=== PATIENT | male | born 1960 | race Caucasian/White ===

== ENCOUNTER 2017-01-11 13:24 | Inpatient (IN) | payer OTHER ==
[~2017-01-11] VITALS: Ht 170.2 cm; Wt 80.5 kg
[~2017-01-11 13:24] MED LIST: DIL100 PO; TOPAMAX50 MG; VIMPAT100 MG PO
[2017-01-11 14:49] LABS: BASOPHIL % 0.5 % (0-2); PLATELET COUNT 311 x10^3mcL (130-400); RED CELL DISTRIBUTION WIDTH 13.3 % (11.5-14.5)
[2017-01-11 15:03] LABS: CALCIUM 9.1 mg/dL (8.5-10.1); CARBON DIOXIDE 24.8 mmol/L (21-32); POTASSIUM SERUM 4.3 mmol/L (3.5-5.1)
[2017-01-11 15:07] LABS: ALBUMIN 4.3 g/dL (3.4-5.0); BILIRUBIN TOTAL 0.4 mg/dL (0.20-1.00); TOTAL PROTEIN, SERUM 7.8 g/dL (6.4-8.2)
[2017-01-11 15:19] LABS: UA SPECIFIC GRAVITY 1.025 (1.005-1.035); microscopic required? YES; urine erythrocyte NEGATIVE (NEGATIVE)
[2017-01-11 15:28] LABS: AMPHETAMINE QUAL UR NONE DETECTED (NEG <=1000)
[2017-01-11] MEDS ORDERED: LAM100 PO (17:10)
[2017-01-11] MEDS ORDERED: KLONOPIN1 MG PO (17:10)
[2017-01-11] MEDS ORDERED: TOPIRAMATE200 M2 PO (17:10)
[2017-01-11] MEDS ORDERED: ATENOLOL25 MG (17:13)
[2017-01-11] MEDS ORDERED: ASPIR 8181 MG PO (17:13)
[2017-01-11] MEDS ORDERED: NITROGLYCERIN0.4 MG SL (17:13)
[2017-01-11 17:43] LABS: CHOLESTEROL/HDL RATIO 5.4; MAGNESIUM 2.3 mg/dL (1.8-2.4)
[2017-01-11 17:52] LABS: FREE T4 0.88 ng/dL (0.76-1.46); FREE THYROXINE INDEX 2.7 ug/dL (1.4-4.5); T4(THYROXINE) 8.3 ug/dL (4.7-13.3)
[2017-01-11 17:53] LABS: T3 TOTAL 1.19 ng/mL
[2017-01-11 18:03] VITALS: BP 111/67
[2017-01-11 22:14] VITALS: BP 112/70
[2017-01-12 06:26] VITALS: BP 129/69
[2017-01-12 09:19] LABS: BASOPHIL % 0.5 % (0-2); PLATELET COUNT 330 x10^3mcL (130-400); RED CELL DISTRIBUTION WIDTH 13.4 % (11.5-14.5)
[2017-01-12 09:42] LABS: CALCIUM 8.7 mg/dL (8.5-10.1); CARBON DIOXIDE 23.8 mmol/L (21-32); CREATININE SERUM 1.4 mg/dL (0.7-1.3); POTASSIUM SERUM 4.2 mmol/L (3.5-5.1)
[2017-01-12 10:11] VITALS: BP 129/72
[2017-01-12 14:21] VITALS: BP 108/64
[2017-01-12 18:06] VITALS: BP 103/63
[2017-01-12 21:36] VITALS: BP 132/62
[2017-01-13 05:38] VITALS: BP 122/71
[2017-01-13 06:20] LABS: BASOPHIL % 0.4 % (0-2); PLATELET COUNT 293 x10^3mcL (130-400); RED CELL DISTRIBUTION WIDTH 13.1 % (11.5-14.5)
[2017-01-13 06:32] LABS: CALCIUM 8.5 mg/dL (8.5-10.1); CARBON DIOXIDE 24.2 mmol/L (21-32); CREATININE SERUM 1.5 mg/dL (0.7-1.3); PHOSPHOROUS 3.2 mg/dL (2.5-4.9); POTASSIUM SERUM 4.4 mmol/L (3.5-5.1)
[2017-01-13 09:00] VITALS: BP 98/62
[2017-01-13 13:50] VITALS: BP 133/74
[2017-01-13 16:43] VITALS: BP 133/74
== END 2017-01-13 18:28 | disposition home or self-care (01) | DRG 203 ==
LOC: ED 13:24 → DU 17:03
PROVIDERS: Emergency Medicine; Family Medicine; ADMIT Family Medicine
DX: M94.0 Chondrocostal junction syndrome [Tietze] (principal); N18.4 Chronic kidney disease, stage 4 (severe); I12.9 Hypertensive chronic kidney disease with stage 1 through stage 4 chronic kidney disease, or unspecified chronic kidney disease; E78.00 Pure hypercholesterolemia, unspecified; G40.909 Epilepsy, unspecified, not intractable, without status epilepticus; G47.33 Obstructive sleep apnea (adult) (pediatric); M17.11 Unilateral primary osteoarthritis, right knee; Z87.891 Personal history of nicotine dependence
CPT/HCPCS: 80307; 83880; 84439; J2270; J7030; Q0092

== ENCOUNTER 2017-01-19 16:25 | Emergency (ER) | payer OTHER ==
[~2017-01-19] VITALS: Ht 170.2 cm; Wt 82.1 kg
[~2017-01-19 16:25] MED LIST changes: +ASPIR 8181 MG PO; +ATENOLOL25 MG; +KLONOPIN1 MG PO; +LAM100 PO; +NITROGLYCERIN0.4 MG SL; +TOPIRAMATE200 M2 PO
[2017-01-19 20:38] VITALS: BP 133/84
== END 2017-01-19 20:38 | disposition home or self-care (01) ==
LOC: ED 16:25
DX: M25.561 Pain in right knee (principal); M19.90 Unspecified osteoarthritis, unspecified site; I10 Essential (primary) hypertension; Z79.899 Other long term (current) drug therapy
CPT/HCPCS: Q0092

== ENCOUNTER 2017-04-27 09:41 | Emergency (ER) | payer OTHER ==
[2017-04-27 11:11] VITALS: BP 149/79
== END 2017-04-27 11:17 | disposition home or self-care (01) ==
LOC: ED 09:41
DX: M19.011 Primary osteoarthritis, right shoulder (principal); I10 Essential (primary) hypertension; G47.30 Sleep apnea, unspecified; J45.909 Unspecified asthma, uncomplicated; Z98.890 Other specified postprocedural states

== ENCOUNTER 2017-12-05 12:32 | Emergency (ER) | payer OTHER ==
[~2017-12-05] VITALS: Ht 170.2 cm; Wt 83.0 kg
[2017-12-05 12:35] VITALS: Ht 170.2 cm; Wt 83.0 kg
[2017-12-05 14:27] LABS: CALCIUM 8.8 mg/dL (8.5-10.1); CARBON DIOXIDE 22.3 mmol/L (21-32); CHLORIDE SERUM 108 mmol/L (98-107); CREATININE SERUM 1.2 mg/dL (0.7-1.3); GFR1 > 60 mL/min; GLUCOSE SERUM 93 mg/dL (74-106); POTASSIUM SERUM 3.6 mmol/L (3.5-5.1); SODIUM SERUM 140 mmol/L (136-145)
[2017-12-05 14:28] LABS: BASOPHIL % 0.4 % (0-2); PLATELET COUNT 330 x10^3mcL (130-400); RED CELL DISTRIBUTION WIDTH 14.3 % (11.5-14.5)
[2017-12-05 14:32] LABS: ALBUMIN 4.4 g/dL (3.4-5.0); ALKALINE PHOSPHATASE 120 U/L (46-116); ALT/SGPT 36 U/L (16-63); AST/SGOT 20 U/L (15-37); BILIRUBIN TOTAL 0.2 mg/dL (0.20-1.00)
[2017-12-05 15:02] VITALS: BP 141/91
== END 2017-12-05 15:02 | disposition home or self-care (01) ==
LOC: ED 12:32
PROVIDERS: Emergency Medicine
DX: R07.89 Other chest pain (principal); J45.909 Unspecified asthma, uncomplicated; I10 Essential (primary) hypertension; M19.90 Unspecified osteoarthritis, unspecified site
CPT/HCPCS: 36415; 83880; J1885; Q0092

== ENCOUNTER 2018-04-11 18:09 | Inpatient (IN) | payer OTHER ==
[~2018-04-11] VITALS: Ht 167.6 cm; Wt 82.0 kg
[2018-04-11 18:13] VITALS: Ht 167.6 cm; Wt 82.0 kg
[2018-04-11 18:47] LABS: BASOPHIL % 0.5 % (0-2); PLATELET COUNT 298 x10^3mcL (130-400); RED CELL DISTRIBUTION WIDTH 13.3 % (11.5-14.5)
[2018-04-11 19:05] LABS: CALCIUM 9.2 mg/dL (8.5-10.1); CARBON DIOXIDE 22.4 mmol/L (21-32); CHLORIDE SERUM 105 mmol/L (98-107); CREATININE SERUM 1.2 mg/dL (0.7-1.3); GFR1 > 60 mL/min; GLUCOSE SERUM 122 mg/dL (74-106); POTASSIUM SERUM 3.8 mmol/L (3.5-5.1); SODIUM SERUM 137 mmol/L (136-145)
[2018-04-11] MEDS ORDERED: NAPROSYN500 MG (19:33)
[2018-04-11] MEDS ORDERED: NORCO1 TA2 (19:33)
[2018-04-11 20:07] VITALS: BP 133/80
[2018-04-12 05:32] VITALS: BP 116/73
[2018-04-12 06:28] LABS: BASOPHIL % 0.3 % (0-2); PLATELET COUNT 281 x10^3mcL (130-400); RED CELL DISTRIBUTION WIDTH 13.4 % (11.5-14.5)
[2018-04-12 06:52] LABS: CALCIUM 8.7 mg/dL (8.5-10.1); CARBON DIOXIDE 22.1 mmol/L (21-32); CHLORIDE SERUM 106 mmol/L (98-107); CREATININE SERUM 1.2 mg/dL (0.7-1.3); GFR1 > 60 mL/min; GLUCOSE SERUM 99 mg/dL (74-106); POTASSIUM SERUM 4.1 mmol/L (3.5-5.1); SODIUM SERUM 135 mmol/L (136-145)
[2018-04-12 09:37] VITALS: BP 126/81
[2018-04-12 13:28] VITALS: BP 124/76
[2018-04-12 17:05] VITALS: BP 139/81
[2018-04-12 20:45] VITALS: BP 143/87
[2018-04-13 05:02] VITALS: BP 114/76
[2018-04-13 09:10] VITALS: BP 122/75
[2018-04-13 12:42] VITALS: BP 135/90
[2018-04-13 18:38] VITALS: BP 146/89
[2018-04-13 20:45] VITALS: BP 137/83
[2018-04-14 05:33] VITALS: BP 139/92
[2018-04-14 08:40] VITALS: BP 123/79
[2018-04-14 11:32] VITALS: BP 116/72
[2018-04-14 15:51] VITALS: BP 112/75
[2018-04-14 20:30] VITALS: BP 148/90
[2018-04-15 05:49] VITALS: BP 116/79
[2018-04-15 06:23] LABS: BASOPHIL % 0.3 % (0-2); PLATELET COUNT 373 x10^3mcL (130-400); RED CELL DISTRIBUTION WIDTH 13.2 % (11.5-14.5)
[2018-04-15 06:31] LABS: CALCIUM 9.3 mg/dL (8.5-10.1); CARBON DIOXIDE 22.4 mmol/L (21-32); CHLORIDE SERUM 106 mmol/L (98-107); CREATININE SERUM 1.2 mg/dL (0.7-1.3); GFR1 > 60 mL/min; GLUCOSE SERUM 100 mg/dL (74-106); MAGNESIUM 2.1 mg/dL (1.8-2.4); POTASSIUM SERUM 4.3 mmol/L (3.5-5.1); SODIUM SERUM 139 mmol/L (136-145)
[2018-04-15 08:53] VITALS: BP 120/78
[2018-04-15 13:05] VITALS: BP 121/79
[2018-04-15 16:33] VITALS: BP 128/87
[2018-04-15 21:09] VITALS: BP 132/86
[2018-04-16 05:34] VITALS: BP 119/72
[2018-04-16 06:50] LABS: BASOPHIL % 0.4 % (0-2); CALCIUM 9.1 mg/dL (8.5-10.1); CHLORIDE SERUM 106 mmol/L (98-107); CREATININE SERUM 1.1 mg/dL (0.7-1.3); GFR1 > 60 mL/min; GLUCOSE SERUM 99 mg/dL (74-106); MAGNESIUM 2.2 mg/dL (1.8-2.4); PLATELET COUNT 381 x10^3mcL (130-400); POTASSIUM SERUM 4.4 mmol/L (3.5-5.1); RED CELL DISTRIBUTION WIDTH 13.1 % (11.5-14.5); SODIUM SERUM 139 mmol/L (136-145)
[2018-04-16 09:23] VITALS: BP 117/78
[2018-04-16 13:52] VITALS: BP 139/80
[2018-04-16 15:44] VITALS: BP 133/82
[2018-04-16 18:04] VITALS: BP 136/83
[2018-04-16 20:43] VITALS: BP 128/84
[2018-04-17 06:08] VITALS: BP 109/73
[2018-04-17 12:43] VITALS: BP 118/79
[2018-04-17 17:07] VITALS: BP 129/87
[2018-04-17 21:33] VITALS: BP 129/90
[2018-04-18 05:56] VITALS: BP 135/77
[2018-04-18 06:01] LABS: BASOPHIL % 0.4 % (0-2); PLATELET COUNT 367 x10^3mcL (130-400); RED CELL DISTRIBUTION WIDTH 13.3 % (11.5-14.5)
[2018-04-18 06:25] LABS: CALCIUM 9.2 mg/dL (8.5-10.1); CARBON DIOXIDE 19.9 mmol/L (21-32); CHLORIDE SERUM 108 mmol/L (98-107); GFR1 > 60 mL/min; GLUCOSE SERUM 116 mg/dL (74-106); POTASSIUM SERUM 3.8 mmol/L (3.5-5.1); SODIUM SERUM 140 mmol/L (136-145)
[2018-04-18 09:42] VITALS: BP 145/87
[2018-04-18 13:30] VITALS: BP 143/88
[2018-04-18 16:38] VITALS: BP 141/85
[2018-04-18 20:52] VITALS: BP 136/85
[2018-04-19 06:14] VITALS: BP 114/74
[2018-04-19 09:05] VITALS: BP 137/83
[2018-04-19 11:50] VITALS: BP 108/68
[2018-04-19 17:01] VITALS: BP 140/84
[2018-04-19 20:40] VITALS: BP 145/87
[2018-04-20 06:03] VITALS: BP 119/78
[2018-04-20 09:14] VITALS: BP 145/83
[2018-04-20 13:24] VITALS: BP 116/67
[2018-04-20 14:50] VITALS: BP 116/67
== END 2018-04-20 15:33 | disposition short-term general hospital (02) | DRG 101 ==
LOC: ED 18:09 → DU 19:19
PROVIDERS: Emergency Medicine; Internal Medicine; Internal Medicine Pulmonary Disease
DX: G40.803 Other epilepsy, intractable, with status epilepticus (principal); I10 Essential (primary) hypertension; J45.909 Unspecified asthma, uncomplicated; M19.90 Unspecified osteoarthritis, unspecified site; G47.30 Sleep apnea, unspecified; Z68.28 Body mass index [BMI] 28.0-28.9, adult; Z98.890 Other specified postprocedural states; Z79.82 Long term (current) use of aspirin
CPT/HCPCS: J2060; J3490; J7030

== ENCOUNTER 2019-04-16 11:01 | Emergency (ER) | payer OTHER ==
[~2019-04-16] VITALS: Ht 167.6 cm; Wt 81.3 kg
[~2019-04-16 11:01] MED LIST changes: +NAPROSYN500 MG; +NORCO1 TA2
[2019-04-16 11:02] VITALS: Ht 167.6 cm; Wt 81.3 kg
[2019-04-16 11:51] LABS: CALCIUM 8.8 mg/dL (8.5-10.1); CARBON DIOXIDE 20.7 mmol/L (21-32); CHLORIDE SERUM 108 mmol/L (98-107); CREATININE SERUM 1.5 mg/dL (0.7-1.3); GFR1 51 mL/min; GLUCOSE SERUM 98 mg/dL (74-106); POTASSIUM SERUM 3.6 mmol/L (3.5-5.1); SODIUM SERUM 140 mmol/L (136-145)
[2019-04-16 11:55] LABS: ALBUMIN 4.2 g/dL (3.4-5.0); ALKALINE PHOSPHATASE 103 U/L (46-116); ALT/SGPT 27 U/L (16-63); AST/SGOT 13 U/L (15-37); BILIRUBIN TOTAL 0.48 mg/dL (0.20-1.00); MAGNESIUM 2.3 mg/dL (1.8-2.4)
[2019-04-16 11:58] LABS: TOTAL PROTEIN, SERUM 8.3 g/dL (6.4-8.2)
[2019-04-16 12:03] LABS: BASOPHIL % 0.5 % (0-2); PLATELET COUNT 330 x10^3mcL (130-400); RED CELL DISTRIBUTION WIDTH 12.2 % (11.5-14.5)
[2019-04-16 14:46] LABS: AMPHETAMINE QUAL UR NONE DETECTED (See below)
[2019-04-16 17:00] VITALS: BP 123/82
== END 2019-04-16 17:57 | disposition home or self-care (01) ==
LOC: ED 11:01
PROVIDERS: Emergency Medicine
DX: G40.909 Epilepsy, unspecified, not intractable, without status epilepticus (principal); J45.909 Unspecified asthma, uncomplicated; M19.90 Unspecified osteoarthritis, unspecified site
CPT/HCPCS: 36415; G0480

== ENCOUNTER 2020-05-20 15:28 | Emergency (ER) | payer OTHER, MEDICAID ==
[~2020-05-20] VITALS: Ht 165.1 cm; Wt 84.4 kg
[2020-05-20 15:30] VITALS: Ht 165.1 cm; Wt 84.4 kg
[2020-05-20 16:07] LABS: BASOPHIL % 0.7 % (0-2); PLATELET COUNT 323 x10^3mcL (130-400); RED CELL DISTRIBUTION WIDTH 13.3 % (11.5-14.5)
[2020-05-20 16:49] LABS: CALCIUM 8.7 mg/dL (8.5-10.1); CARBON DIOXIDE 20.2 mmol/L (21-32); CHLORIDE SERUM 106 mmol/L (98-107); CREATININE SERUM 1.3 mg/dL (0.7-1.3); GFR1 > 60 mL/min; GLUCOSE SERUM 114 mg/dL (74-106); POTASSIUM SERUM 4.1 mmol/L (3.5-5.1); SODIUM SERUM 137 mmol/L (136-145)
[2020-05-20 16:55] LABS: ALKALINE PHOSPHATASE 111 U/L (46-116); ALT/SGPT 26 U/L (16-63); AST/SGOT 13 U/L (15-37); BILIRUBIN TOTAL 0.18 mg/dL (0.20-1.00); TOTAL PROTEIN, SERUM 8.1 g/dL (6.4-8.2)
[2020-05-20 17:26] VITALS: BP 138/83
== END 2020-05-20 17:35 | disposition home or self-care (01) ==
LOC: ED 15:28
PROVIDERS: Emergency Medicine
DX: R07.89 Other chest pain (principal); R06.02 Shortness of breath; J45.909 Unspecified asthma, uncomplicated; I10 Essential (primary) hypertension; M19.90 Unspecified osteoarthritis, unspecified site; Z98.890 Other specified postprocedural states
CPT/HCPCS: Q0092

== ENCOUNTER 2020-09-23 09:15 | Emergency (ER) | payer OTHER, MEDICAID ==
[~2020-09-23] VITALS: Ht 165.1 cm; Wt 80.3 kg
[~2020-09-23 09:15] MED LIST changes: +ATORVASTATIN CA40 M1 PO; +BAY PO; +BRILINTA90 M1 PO; +METOPROLOL TART25 M1 PO; +ZES5 PO
[2020-09-23 09:26] VITALS: Ht 165.1 cm; Wt 80.3 kg
[2020-09-23 12:26] LABS: BASOPHIL % 0.3 % (0.2-1.5); PLATELET COUNT 335 x10^3mcL (152-348); RED CELL DISTRIBUTION WIDTH 13.6 % (12.1-16.2)
[2020-09-23 12:29] LABS: CALCIUM 9.2 mg/dL (8.5-10.1); CARBON DIOXIDE 22.6 mmol/L (21-32); CHLORIDE SERUM 106 mmol/L (98-107); CREATININE SERUM 1.1 mg/dL (0.7-1.3); GFR1 > 60 mL/min; GLUCOSE SERUM 98 mg/dL (74-106); POTASSIUM SERUM 4.3 mmol/L (3.5-5.1); SODIUM SERUM 137 mmol/L (136-145)
[2020-09-23 12:37] LABS: ALBUMIN 4.1 g/dL (3.4-5.0); ALKALINE PHOSPHATASE 104 U/L (46-116); ALT/SGPT 27 U/L (16-63); AST/SGOT 13 U/L (15-37); BILIRUBIN TOTAL 0.23 mg/dL (0.20-1.00)
[2020-09-23 13:31] LABS: TOTAL PROTEIN, SERUM 8.6 g/dL (6.4-8.2)
[2020-09-23 14:49] VITALS: BP 126/82
== END 2020-09-23 14:49 | disposition home or self-care (01) ==
LOC: ED 09:15
PROVIDERS: Emergency Medicine
DX: R07.89 Other chest pain (principal); I10 Essential (primary) hypertension
CPT/HCPCS: J3490